=== PATIENT | female | born 1975 | race Caucasian/White ===

== ENCOUNTER 2024-08-05 17:25 | Emergency (ER) | payer OTHER ==
[2024-08-05 17:28] VITALS: BP 99/67; PULSE 83; RESP 18; TEMP 97.6; BMI 30.7
[2024-08-05 19:09] LABS: BASO % 0.8 % (0-2.0); HEMATOCRIT 38.5 % (32.4-45.2); HEMOGLOBIN 12.9 GM/dL (10.7-15.3); LYMPH % 11.9 % (8-40); MCH 29.6 pg (25.7-33.7); MCHC 33.6 g/dl (32.0-36.0); MEAN CELL VOLUME 88.2 fl (80-96); MEAN PLT VOLUME 7.3 fl (7.5-11.1); MONO % 8.1 % (3.8-10.2); NEUT % 78.2 % (42.8-82.8); PLATELET COUNT 222 10^3/uL (134-434); RBC 4.37 M/mm3 (3.60-5.2); WHITE BLOOD COUNT 10.1 K/mm3 (4.0-10.0)
[2024-08-05 19:12] LABS: PH,URINE 6.5 (5.0-8.0); URINE APPEARANCE CLEAR; URINE BILIRUBIN NEGATIVE (NEGATIVE); URINE COLOR YELLOW; URINE GLUCOSE (UA) NEGATIVE (NEGATIVE); URINE KETONE NEGATIVE (NEGATIVE); URINE LEUK ESTERASE 2+ (NEGATIVE); URINE NITRITE NEGATIVE (NEGATIVE); URINE PROTEIN NEGATIVE (NEGATIVE); URINE UROBILINOGEN 0.2 mg/dL (0.2-1.0)
[2024-08-05 19:30] LABS: HCG,QUALITATIVE URINE Negative
[2024-08-05 20:04] LABS: POTASSIUM 4.3 mmol/L (3.5-5.1)
[2024-08-05 20:07] LABS: ALBUMIN 3.7 g/dl (3.4-5.0); BLOOD UREA NITROGEN 15.3 mg/dL (7-18); CALCIUM 9.1 mg/dL (8.5-10.1)
[2024-08-05 20:12] LABS: BILIRUBIN,TOTAL 0.3 mg/dL (0.2-1); TOT PROT 7.7 g/dl (6.4-8.2)
[2024-08-05 23:22] LABS: EPI CELLS 26.8 /uL (0-25.1); HYALINE CASTS 1.02 /uL (0-3.1); URINE BACTERIA 653.4 /uL (0-1359); URINE RBC 15.6 /uL (0-23.9); URINE WBC 152.7 /uL (0-25.8)
== END 2024-08-06 01:24 | disposition home or self-care (01) ==
LOC: JER 17:25
DX: R10.31 Right lower quadrant pain (principal); N12 Tubulo-interstitial nephritis, not specified as acute or chronic; R50.9 Fever, unspecified; R11.0 Nausea; N83.201 Unspecified ovarian cyst, right side; D21.9 Benign neoplasm of connective and other soft tissue, unspecified
CPT/HCPCS: 36415; 74177-TC; 76856-TC; 80053; 81003; 83690; 84703; 85025; 87086; 99285-25; Q9967